=== PATIENT | female | born 1965 | race Caucasian/White ===

== ENCOUNTER 2016-04-30 | Outpatient (CLI) | payer OTHER, MEDICAID | END 2016-04-30 13:15 | disposition home or self-care (01) | DX: R07.9 Chest pain, unspecified (principal) ==

== ENCOUNTER 2016-05-27 14:29 | Outpatient (CLI) | payer OTHER, MEDICAID | END 2016-05-27 14:30 | disposition home or self-care (01) | DX: R06.00 Dyspnea, unspecified (principal) ==

== ENCOUNTER 2017-09-11 08:00 | Outpatient (CLI) | payer OTHER, MEDICAID ==
[2017-09-11 19:02] LABS: BASOPHILS # (AUTO) 0.1 10^3/uL (0.0-0.1); BASOPHILS % (AUTO) 0.9 %; EOSINOPHILS # (AUTO) 0.1 10^3/uL (0.0-0.7); EOSINOPHILS % (AUTO) 1.2 %; HGB - HEMOGLOBIN 13.3 g/dL (12.0-16.0); LYMPHOCYTES # (AUTO) 2.3 10^3/uL (1.5-3.5); LYMPHOCYTES % (AUTO) 37.3 %; MEAN CORPUSCULAR HEMOGLOBIN 29.4 pg (27.0-31.0); MEAN CORPUSCULAR HGB CONC 34.3 g/dL (32.0-36.0); MEAN CORPUSCULAR VOLUME 85.7 fL (81.0-99.0); MEAN PLATELET VOLUME 7.5 fL (7.9-10.8); MONOCYTES # (AUTO) 0.3 10^3/uL (0.0-1.0); MONOCYTES % (AUTO) 4.8 %; NEUTROPHILS # (AUTO) 3.5 10^3/uL (1.5-6.6); NEUTROPHILS % (AUTO) 55.8 %; PLT - PLATELET COUNT 373 10^3/uL (130-450); RED BLOOD COUNT 4.54 10^6/uL (4.20-5.40); RED CELL DISTRIBUTION WIDTH 12.9 % (12.0-15.0); WHITE BLOOD COUNT 6.2 x10^3/uL (4.8-10.8)
[2017-09-11 19:21] LABS: CALCIUM 9.9 mg/dL (8.5-10.3); CREATININE 0.6 mg/dL (0.4-1.0)
[2017-09-11 19:24] LABS: THYROID STIMULATING HORMONE 1.3 uIU/mL (0.34-5.60)
[2017-09-11 21:10] LABS: HB2 TOTAL 14.7 g/dL; HEMOGLOBIN A1C 0.49 g/dL; HEMOGLOBIN A1C % 5.2 % (4.6-6.2)
[2017-09-14 15:11] LABS: ANA SCREEN NEGATIVE (NEGATIVE)
== END 2017-09-11 08:01 | disposition home or self-care (01) ==
LOC: LAB.N 08:00
PROVIDERS: ATTEND Physician Assistant Medical
DX: R20.2 Paresthesia of skin (principal)
CPT/HCPCS: 36415; 80048; 82607; 83036; 84443; 85025; 85651; 86038

== ENCOUNTER 2017-12-08 09:29 | Outpatient (CLI) | payer OTHER, MEDICAID ==
--- NOTE | 2017-12-08 11:01 | CT Report ---
Reason: OTALGIA, LEFT Procedure Date: 12/08/2017 Accession Number: [id number] / [id number] Procedure: CT - Sinuses CPT Code: FULL RESULT: EXAM: CT SINUS EXAM DATE: 12/08/2017 09:48 AM. HISTORY: Left-sided otalgia. COMPARISONS: CT head without contrast 08/06/2014. TECHNIQUE: Routine multi-axial CT imaging performed through the sinuses. Iodinated IV contrast: None. Reconstructions: Coronal. In accordance with CT protocol optimization, one or more of the following dose reduction techniques were utilized for this exam: automated exposure control, adjustment of mA and/or KV based on patient size, or use of iterative reconstructive technique. FINDINGS: RIGHT Frontal: Normal. Ethmoid: Opacified right ethmoid bulla, remaining ethmoids are clear. Maxillary: Normal. Sphenoid: Normal. Drainage Pathways: The frontal recess, ostiomeatal complex and sphenoethmoidal recess are patent and normal. LEFT Frontal: Normal. Ethmoid: Normal. Maxillary: Normal. Sphenoid: Normal. Drainage Pathways: The frontal recess, ostiomeatal complex and sphenoethmoidal recess are patent and normal. Nasal Cavity: Normal. No mass or significant anatomic abnormality evident. Osseous Structures: Minimal mucoperiosteal thickening within the nasal cavity. Orbits: Stable appearance of the defect in the right lamina papyracea, evidence of prior injury. Other: Visualized external and internal auditory canal osseous structures are grossly intact and unremarkable. IMPRESSION: No sinusitis and no gross osseous erosive changes in the region of the left ear. RADIA
== END 2017-12-08 09:30 | disposition home or self-care (01) ==
LOC: DI 09:29
PROVIDERS: ATTEND Physician Assistant Medical
DX: H92.02 Otalgia, left ear (principal)
CPT/HCPCS: 70486

== ENCOUNTER 2017-12-23 08:00 | Outpatient (CLI) | payer OTHER, MEDICAID ==
[2017-12-23 20:38] LABS: BASOPHILS % (AUTO) 0.6 %; EOSINOPHILS # (AUTO) 0.1 10^3/uL (0.0-0.7); EOSINOPHILS % (AUTO) 1.7 %; HGB - HEMOGLOBIN 13.7 g/dL (12.0-16.0); LYMPHOCYTES # (AUTO) 2.2 10^3/uL (1.5-3.5); LYMPHOCYTES % (AUTO) 32.8 %; MEAN CORPUSCULAR HEMOGLOBIN 29.7 pg (27.0-31.0); MEAN CORPUSCULAR HGB CONC 34.3 g/dL (32.0-36.0); MEAN CORPUSCULAR VOLUME 86.5 fL (81.0-99.0); MEAN PLATELET VOLUME 6.9 fL (7.9-10.8); MONOCYTES # (AUTO) 0.3 10^3/uL (0.0-1.0); MONOCYTES % (AUTO) 4.5 %; NEUTROPHILS % (AUTO) 60.4 %; PLT - PLATELET COUNT 352 10^3/uL (130-450); RED BLOOD COUNT 4.61 10^6/uL (4.20-5.40); RED CELL DISTRIBUTION WIDTH 12.8 % (12.0-15.0); WHITE BLOOD COUNT 6.6 x10^3/uL (4.8-10.8)
[2017-12-23 21:13] LABS: ALBUMIN 4.4 g/dL (3.2-5.5); ALBUMIN/GLOBULIN RATIO 1.5 (1.0-2.2); BILIRUBIN,TOTAL 0.5 mg/dL (0.2-1.0); CREATININE 0.6 mg/dL (0.4-1.0); TOTAL PROTEIN 7.3 g/dL (6.7-8.2)
== END 2017-12-23 08:01 | disposition home or self-care (01) ==
LOC: LAB.R 08:00
PROVIDERS: ATTEND Physician Assistant Medical
DX: R51 Headache (principal); M54.2 Cervicalgia; H92.02 Otalgia, left ear
CPT/HCPCS: 36415; 80053; 84443; 85025

== ENCOUNTER 2018-06-09 15:03 | Emergency (ER) | payer OTHER, MEDICAID ==
[2018-06-09] MEDS ORDERED: ONDANSETRON 4 MG/2 ML VIAL IVP STA (15:21)
[2018-06-09] MEDS ORDERED: HYDROmorphone 1 MG/ML CARPUJECT IVP STA (15:21)
--- NOTE | 2018-06-09 15:24 | ED Physician Documentation ---
PD HPI HEADACHE - Stated complaint Stated Complaint: NEGRETE/SENT BY - Chief complaint Chief Complaint: Neuro - History obtained from History obtained from: Patient - History of Present Illness Timing - onset: Today (She had a sudden severe frontal headache that started during a "activity" just prior to arrival. Her daughters in the room and she does not specifically state what the activity was, but makes it pretty clear that it was sexual activity. She does have headaches but this is different and sudden in onset. She notes that for the last several weeks she has had on and off upper left chest pain radiating to the neck that is nonexertional and does not seem to be triggered by anything specific. When the headache started she reached up to grab her head but noticed that briefly her arm did not seem to work on the right, that is now better.) Review of Systems Ten Systems: 10 systems reviewed and negative Constitutional: denies: Fever, Chills Respiratory: denies: Dyspnea, Cough GI: denies: Abdominal Pain, Nausea, Vomiting PD PAST MEDICAL HISTORY - Past Medical History Cardiovascular: None Respiratory: None Endocrine/Autoimmune: None GI: None SHEETING PULLER: None : None HEENT: None Psych: Depression, Anxiety Musculoskeletal: None Derm: None - Past Surgical History Past Surgical History: Yes Ortho: Spine surgery /SHEETING PULLER: Hysterectomy - Present Medications Home Medications: Ambulatory Orders Medication Instructions Recorded Confirmed Gabapentin 600 mg PO DAILY 08/06/14 06/14/15 Sertraline HCl [Zoloft] 100 mg PO DAILY 08/06/14 06/14/15 tiZANidine [Zanaflex] 4 mg ORAL QPM PRN 11/06/14 06/14/15 Gabapentin 900 mg PO QPM 06/13/15 06/14/15 Kalida 300 mg PO QPM 06/13/15 06/14/15 Methylphenidate HCl [Concerta] 54 mg PO DAILY 06/13/15 06/14/15 Multivitamin [Multivitamins] 1 each PO DAILY 06/13/15 06/14/15 Amox/Clav 875/125 [Augmentin] 1 each PO Q12H #20 tablet 06/09/18 Indomethacin [Indocin] 25 mg PO BIDWM PRN #20 capsule 06/09/18 - Allergies Allergies/Adverse Reactions: Allergies Allergy/AdvReac Type Severity Reaction Status Date / Time No Known Drug Allergies Allergy Verified 06/09/18 15:08 - Social History Does the pt smoke?: No Smoking Status: Never smoker Does the pt drink ETOH?: No Does the pt have substance abuse?: No - Immunizations Immunizations are current?: No Immunizations: TDAP >10years/unknown PD ED PE NORMAL - Vitals Vital signs reviewed: Yes - General General: Alert and oriented X 3, Other (She appears uncomfortable and photophobic) - HEENT HEENT: PERRL, EOMI, Pharynx benign - Neck Neck: Supple, no meningeal sign, No bony TTP - Cardiac Cardiac: RRR, No murmur - Respiratory Respiratory: No respiratory distress, Clear bilaterally - Abdomen Abdomen: Normal bowel sounds, Soft, Non tender - Back Back: No CVA TTP, No spinal TTP - Derm Derm: Normal color, Warm and dry - Extremities Extremities: No edema, No calf tenderness / cord - Neuro Neuro: Alert and oriented X 3, survey research manager 2-12 intact, No motor deficit (Symmetric upper and lower extremity strength; No facial droop) Eye Opening: Spontaneous Motor: Obeys Commands Verbal: Oriented GCS Score: 15 - Psych Psych: Normal mood, Normal affect Results - Vitals Vitals: Vital Signs - 24 hr 06/09/18 06/09/18 15:07 15:35 Temperature 36.4 C L Heart Rate 92 75 Respiratory 18 20 Rate Blood Pressure 149/96 H 149/94 H O2 Saturation 100 98 Oxygen O2 Source Room air - EKG (time done) 1515 Rate: Rate (enter#) (83) Rhythm: NSR, LAE [place]: Normal Intervals: Normal ND QRS: Normal Ischemia: Normal ST segments Computer interpretation: Agree with computer - Labs Labs: Laboratory Tests 06/09/18 06/09/18 06/09/18 15:28 15:28 15:28 WBC 6.6 RBC 4.66 Hgb 13.9 Hct 39.3 MCV 84.3 MCH 29.8 MCHC 35.3 RDW 12.6 Plt Count 364 MPV 6.8 L Neut # (Auto) 4.1 Lymph # (Auto) 2.1 Deuel # (Auto) 0.3 Eos # (Auto) 0.1 Baso # (Auto) 0.1 Absolute Nucleated RBC 0.00 Nucleated RBC % 0.0 Sodium 137 Potassium 3.8 Chloride 104 Carbon Dioxide 25 Anion Gap 8.0 BUN 14 Creatinine 0.6 Estimated GFR (MDRD) 105 Glucose 114 H Calcium 10.2 Total Bilirubin 0.4 AST 29 ALT 31 Alkaline Phosphatase 112 Troponin I < 0.04 Total Protein 8.0 Albumin 4.4 Globulin 3.6 Albumin/Globulin Ratio 1.2 Lipase 34 - Rads (name of study) CT/CTA Head Radiology: EMP read contemporaneously (No subarachnoid hemorrhage or significant intracranial vascular abnormality. She does have sinusitis.) PD MEDICAL DECISION MAKING - ED course ED course: This is a 52-year-old woman who presents with thunderclap headache during sex, most likely a coital headache but subarachnoid hemorrhages on the differential and worked up with CT and CT angiogram of the head which were negative. Departure - Departure Disposition: 01 Home, Self Care Clinical Impression: Coital headache Sinusitis Qualifiers: Sinusitis location: maxillary Chronicity: acute Recurrence: non-recurrent Qualified Code(s): J01.00 - Acute maxillary sinusitis, unspecified Condition: Good Record reviewed to determine appropriate education?: Yes Instructions: ED Headache Sinus Prescriptions: Amox/Clav 875/125 [Augmentin] 1 each PO Q12H #20 tablet Indomethacin [Indocin] 25 mg PO BIDWM PRN #20 capsule PRN Reason: Headache Comments: Call your doctor to arrange a follow-up appointment, make the next available appointment. In the interim, return anytime if worse or if new symptoms develop. Your blood pressure was elevated today on check into the emergency department. This does not mean that you have hypertension, it is a common phenomenon to come to the emergency department and have elevated blood pressure. I recommend that you see your primary care physician within the week to have it rechecked when you are feeling better.
[2018-06-09] MEDS ORDERED: IOVERSOL 320 100 ML VIAL IVP ONE ×2 (15:29→16:26)
[2018-06-09 15:38] LABS: BASOPHILS # (AUTO) 0.1 10^3/uL (0.0-0.1); BASOPHILS % (AUTO) 0.8 %; EOSINOPHILS # (AUTO) 0.1 10^3/uL (0.0-0.7); EOSINOPHILS % (AUTO) 1.2 %; HGB - HEMOGLOBIN 13.9 g/dL (12.0-16.0); LYMPHOCYTES # (AUTO) 2.1 10^3/uL (1.5-3.5); LYMPHOCYTES % (AUTO) 32.2 %; MEAN CORPUSCULAR HEMOGLOBIN 29.8 pg (27.0-31.0); MEAN CORPUSCULAR HGB CONC 35.3 g/dL (32.0-36.0); MEAN CORPUSCULAR VOLUME 84.3 fL (81.0-99.0); MEAN PLATELET VOLUME 6.8 fL (7.9-10.8); MONOCYTES # (AUTO) 0.3 10^3/uL (0.0-1.0); MONOCYTES % (AUTO) 4.1 %; NEUTROPHILS # (AUTO) 4.1 10^3/uL (1.5-6.6); NEUTROPHILS % (AUTO) 61.7 %; PLT - PLATELET COUNT 364 10^3/uL (130-450); RED BLOOD COUNT 4.66 10^6/uL (4.20-5.40); RED CELL DISTRIBUTION WIDTH 12.6 % (12.0-15.0); WHITE BLOOD COUNT 6.6 x10^3/uL (4.8-10.8)
[2018-06-09 15:50] LABS: ALBUMIN 4.4 g/dL (3.2-5.5); ALBUMIN/GLOBULIN RATIO 1.2 (1.0-2.2); BILIRUBIN,TOTAL 0.4 mg/dL (0.2-1.0); CALCIUM 10.2 mg/dL (8.5-10.3); CREATININE 0.6 mg/dL (0.4-1.0)
--- NOTE | 2018-06-09 16:01 | XRAY Report ---
Reason: chest pain Procedure Date: 06/09/2018 Accession Number: [id number] / [id number] Procedure: XR - Chest 1 View X-Ray CPT Code: 04189 FULL RESULT: EXAM: CHEST RADIOGRAPHY EXAM DATE: 06/09/2018 03:53 PM. CLINICAL HISTORY: Chest pain. COMPARISON: CHEST 2 VIEW PA/LAT 05/27/2016 2:44 PM. TECHNIQUE: 1 view. FINDINGS: Lungs/Pleura: No focal opacities evident. No pleural effusion. No pneumothorax. The right hemidiaphragm is mildly elevated. This limits evaluation of the right lung base. Mediastinum: Within exam limitations, the cardiomediastinal contour is normal. Other: None. IMPRESSION: Mild elevation of the right hemidiaphragm, otherwise no acute cardiopulmonary abnormality detected. RADIA
--- NOTE | 2018-06-09 16:46 | CT Report ---
Reason: coital severe headache Procedure Date: 06/09/2018 Accession Number: [id number] / [id number] Procedure: CT - HEAD WO CPT Code: FULL RESULT: CT HEAD WITHOUT CONTRAST INDICATION: 52-year-old female. Coital severe headache. TECHNIQUE: Sequential 5 mm axial images were obtained through the brain. In accordance with CT protocol optimization, one or more of the following dose reduction techniques were utilized for this exam: automated exposure control, adjustment of mA and/or KV based on patient size, or use of iterative reconstructive technique. COMPARISON: 08/06/2014 FINDINGS: There is mild prominence of the cerebral cortical sulci and cerebellar folia, unchanged. The third and lateral ventricles are quite small but unchanged when compared to the prior study. The fourth ventricle remains normal in size. No evidence of subarachnoid or other intracranial hemorrhage. No abnormal extra-axial fluid collection. No mass effect or midline shift. Attenuation of cortex and white matter appears normal. The skull and skull base appear intact. Middle ear cavities and imaged mastoid air cells appear clear. There is circumferential polypoid mucosal thickening in both maxillary sinuses. There appears to be an air-fluid level in the posterior recess of the right maxillary sinus. No other air-fluid level. No air-fluid level is seen in the left maxillary sinus. The imaged paranasal sinuses are otherwise essentially clear. IMPRESSION: 1. Negative unenhanced head CT. No evidence of hemorrhage or other acute intracranial pathology. 2. Mucosal thickening is identified in both maxillary sinuses. There appears to be an air-fluid level in the posterior recess of the right maxillary sinus. In the appropriate clinical setting this certainly could represent active sinusitis.
--- NOTE | 2018-06-09 16:59 | CT Report ---
Reason: coital severe headache Procedure Date: 06/09/2018 Accession Number: [id number] / [id number] Procedure: CT - ANGIO HEAD W CPT Code: FULL RESULT: EXAM: CT ANGIOGRAM HEAD AND POSTCONTRAST HEAD CT. INDICATION: 52-year-old female. Coital severe headache. TECHNIQUE: CT angiogram head 80 cc of Optiray 320 contrast were injected at a rapid rate through a large bore antecubital intravenous catheter. The head was scanned helically during arterial phase. Data was reconstructed into 0.5 mm axial images. In addition, MIP reconstructions have been generated in multiple projections to allow better assessment of the intracranial arteries. Postcontrast head CT Sequential 5 mm axial images were obtained through the brain following the CT angiogram. In accordance with CT protocol optimization, one or more of the following dose reduction techniques were utilized for this exam: automated exposure control, adjustment of mA and/or KV based on patient size, or use of iterative reconstructive technique. COMPARISON: None. FINDINGS: CT angiogram head Anterior circulation: The internal carotid arteries are widely patent bilaterally. No ICA aneurysm is identified. The A1 segment of the left anterior cerebral artery is hypoplastic with dominant right A1 segment. An anterior communicating artery is demonstrated. There appears to be good filling of the A2 and distal SHRUTHI branches bilaterally. No aneurysms are identified in either anterior cerebral artery circulation. The middle cerebral arteries are unremarkable. No aneurysm is demonstrated and there is no obvious occlusion or hemodynamically significant stenosis affecting main branches of either MCA. There appear to be a similar number of opacified M3 and M4 branches bilaterally. Posterior circulation: The vertebral arteries and PICA's are patent. No aneurysm is identified in either PICA origin. The basilar artery, superior cerebellar arteries and right TELEVISION NEWS PRODUCER have a normal appearance. The P1 segment of the left posterior cerebral artery is developmentally absent. There is a large left posterior communicating artery that supplies the P2 and distal left TELEVISION NEWS PRODUCER branches. This represents a known anatomical variant ( origin of the left TELEVISION NEWS PRODUCER). A moderate-sized right posterior communicating artery is demonstrated. No aneurysms are identified arising from the basilar artery trunk or apex. Postcontrast head CT No enhancing space-occupying mass lesion is demonstrated. There appears to be normal intravascular contrast enhancement in the dural venous sinuses and deep venous structures. This effectively excludes the possibility of dural venous sinus thrombosis. IMPRESSION: CT angiogram head 1. Normal anatomical variants (please see above). 2. Otherwise normal intracranial CT angiogram. In particular, no aneurysm is identified. Postcontrast head CT No enhancing mass lesion is demonstrated.
[2018-06-09] MEDS ORDERED: KETOROLAC 30 MG/ML VIAL IVP STA (17:05)
[2018-06-09 17:17] VITALS: BP 119/81
== END 2018-06-09 17:25 | disposition home or self-care (01) ==
LOC: ED 15:03
DX: R51 Headache (principal); J01.00 Acute maxillary sinusitis, unspecified; R03.0 Elevated blood-pressure reading, without diagnosis of hypertension
CPT/HCPCS: 36415; 70450; 70496; 71045; 80053; 83690; 84484; 85025; 93005; 96374; 96375; 99283; 99284; J1170; Q9967

== ENCOUNTER 2019-02-09 15:31 | Emergency (ER) | payer OTHER, MEDICAID ==
[2019-02-09] MEDS ORDERED: KETOROLAC 30 MG/ML VIAL IVP STA (16:08)
[2019-02-09] MEDS ORDERED: SODIUM CHLORIDE 0.9% 1,000 ML IV ONE (16:08)
[2019-02-09] MEDS ORDERED: ACETAMINOPHEN 325 MG TABLET PO STA (16:08)
--- NOTE | 2019-02-09 16:08 | ED Physician Documentation ---
History of Present Illness - Stated complaint Stated Complaint: HEADACHE - Chief complaint Chief Complaint: Neuro - Additonal information Additional information: This is a 53-year-old female with a history of anxiety, depression, and headach es, presents with a persistent headache over around 6 weeks. Patient states that this began gradually, and has waxed and waned somewhat, but is worsened over the last week. She denies any trauma to her head, vision changes, weakness or numbness. She does have some soreness in her left side of her neck associated with a headache. She does get headaches frequently, but this one has lasted longer than her typical headache. She has tried Tylenol and ibuprofen, but these have been minimally effective Review of Systems Constitutional: denies: Fever Eyes: denies: Loss of vision Neurologic: reports: Headache. denies: LOC PD PAST MEDICAL HISTORY - Past Medical History Cardiovascular: None Respiratory: None Neuro: Headaches Endocrine/Autoimmune: None GI: None COILER: None : None HEENT: None Psych: Depression, Anxiety Musculoskeletal: None Derm: None - Past Surgical History Past Surgical History: Yes Ortho: Spine surgery /COILER: Hysterectomy - Present Medications Home Medications: Ambulatory Orders Medication Instructions Recorded Confirmed Sertraline HCl [Zoloft] 100 mg PO DAILY 08/06/14 06/14/15 tiZANidine [Zanaflex] 4 mg ORAL QPM PRN 11/06/14 06/14/15 Multivitamin [Multivitamins] 1 each PO DAILY 06/13/15 06/14/15 Metoclopramide [Reglan] 10 mg PO Q6H PRN #10 tablet 02/09/19 - Allergies Allergies/Adverse Reactions: Allergies Allergy/AdvReac Type Severity Reaction Status Date / Time No Known Drug Allergies Allergy Verified 02/09/19 15:38 - Social History Does the pt smoke?: No Smoking Status: Never smoker Does the pt drink ETOH?: No Does the pt have substance abuse?: No - Immunizations Immunizations are current?: No Immunizations: TDAP >10years/unknown PD ED PE NORMAL - Vitals Vital signs reviewed: Yes - General General: Alert and oriented X 3 - HEENT HEENT: Atraumatic, PERRL, EOMI - Neck Neck: Supple, no meningeal sign - Cardiac Cardiac: RRR - Respiratory Respiratory: No respiratory distress, Clear bilaterally - Derm Derm: Warm and dry - Extremities Extremities: No deformity - Neuro Neuro: Alert and oriented X 3, housekeeping assistant 2-12 intact, No motor deficit, No sensory deficit, Normal speech - Psych Psych: Normal mood, Normal affect Results - Vitals Vitals: Oxygen O2 Source Room air PD MEDICAL DECISION MAKING - ED course Complexity details: considered differential (tension headache, migraine, ICH/SAH) ED course: Pt presents with a persistent headache with similar characteristics to her past headaches and without red flag symptoms for infection or bleed - it was gradual in onset, she has a normal neurologic exam, no fever, no trauma. IV inserted and migraine cocktail given with excellent effect, her headache was nearly completely resolved on repeat exam. I discussed follow up and return precuations and patient was discharged home. Departure - Departure Disposition: 01 Home, Self Care Clinical Impression: Headache Qualifiers: Headache type: unspecified Headache chronicity pattern: acute headache Intractability: not intractable Qualified Code(s): R51 - Headache Condition: Good Instructions: ED Cephalgia Unspecified Prescriptions: Metoclopramide [Reglan] 10 mg PO Q6H PRN #10 tablet PRN Reason: Nausea / Vomiting Comments: You were seen today for a headache which has improved with medications here. You may take Tylenol and ibuprofen for headache, and the Reglan for nausea and vomiting, the Reglan may also help with your headache. If you are developing vision changes, weakness or numbness, persistent vomiting, or any other co ncerning symptoms please return to the emergency department. Otherwise please follow-up with your primary care provider and a neurologist as soon as possible. Discharge Date/Time: 02/09/19 18:22
[2019-02-09] MEDS ORDERED: diphenhydrAMINE INJ 50 MG/ML VIAL IVP STA (16:09)
[2019-02-09] MEDS ORDERED: METOCLOPRAMIDE 10 MG/2 ML VIAL IVP STA (16:09)
[2019-02-09 18:20] VITALS: BP 133/84
== END 2019-02-09 18:22 | disposition home or self-care (01) ==
LOC: ED 15:31
DX: R51 Headache (principal)
CPT/HCPCS: 96361; 96374; 96375; 99283; 99284; A9270; J1200; J2765

== ENCOUNTER 2020-01-06 08:15 | Outpatient (CLI) | payer OTHER, MEDICAID ==
--- NOTE | 2020-01-09 13:39 | Mammography Report ---
BILATERAL DIGITAL SCREENING MAMMOGRAM 3D/2D: 01/06/2020 CLINICAL: Routine screening. Comparison is made to exam dated: 05/21/2015 mammogram - [facility]. There are scat tered fibroglandular elements in both breasts. No significant masses, calcifications, or other findings are seen in either breast. There has been no significant interval change. IMPRESSION: NEGATIVE There is no mammographic evidence of malignancy. A 1 year screening mammogram is recommended. This exam was interpreted at Station ID: [id number]. NOTE: For mammograms, a report in lay terms will be sent to the patient. Approximately 15% of breast malignancies will not be visualized mammographically. In the management of a palpable breast mass, a negative mammogram must not discourage biopsy of a clinically suspicious lesion. Electronically Signed By: Morro hastings/keenan:01/06/2020 09:52:03 ACR BI-RADS Category 1: Negative 3341F PARENCHYMAL PATTERN: (A) - The breast(s) demonstrate(s) scattered fibroglandular densities. BI-RADS CATEGORY: (1) - 1 RECOMMENDATION: (ANNUAL) - Recommend routine annual screening mammography. [id number] 1 year screening LATERALITY: (B)
== END 2020-01-06 08:16 | disposition home or self-care (01) ==
LOC: DI.N 08:15
DX: Z12.31 Encounter for screening mammogram for malignant neoplasm of breast (principal)
CPT/HCPCS: 77063; 77067

== ENCOUNTER 2020-01-06 09:20 | Outpatient (CLI) | payer OTHER, MEDICAID ==
[2020-01-06 12:03] LABS: BASOPHILS # (AUTO) 0.1 10^3/uL (0.0-0.1); BASOPHILS % (AUTO) 1.1 %; EOSINOPHILS # (AUTO) 0.1 10^3/uL (0.0-0.7); HGB - HEMOGLOBIN 14.1 g/dL (12.0-16.0); LYMPHOCYTES # (AUTO) 2.2 10^3/uL (1.5-3.5); LYMPHOCYTES % (AUTO) 36.3 %; MEAN CORPUSCULAR HEMOGLOBIN 29.4 pg (27.0-31.0); MEAN CORPUSCULAR HGB CONC 33.1 g/dL (32.0-36.0); MEAN CORPUSCULAR VOLUME 88.9 fL (81.0-99.0); MEAN PLATELET VOLUME 9.1 fL (7.9-10.8); MONOCYTES # (AUTO) 0.4 10^3/uL (0.0-1.0); MONOCYTES % (AUTO) 6.2 %; NEUTROPHILS # (AUTO) 3.3 10^3/uL (1.5-6.6); NEUTROPHILS % (AUTO) 54.1 %; PLT - PLATELET COUNT 340 10^3/uL (130-450); RED BLOOD COUNT 4.79 10^6/uL (4.20-5.40); RED CELL DISTRIBUTION WIDTH 12.2 % (12.0-15.0); WHITE BLOOD COUNT 6.1 x10^3/uL (4.8-10.8)
[2020-01-06 12:13] LABS: ALBUMIN 4.4 g/dL (3.2-5.5); ALBUMIN/GLOBULIN RATIO 1.4 (1.0-2.2); BILIRUBIN,TOTAL 0.6 mg/dL (0.2-1.0); CALCIUM 10.3 mg/dL (8.5-10.3); CREATININE 0.8 mg/dL (0.4-1.0); TOTAL PROTEIN 7.5 g/dL (6.7-8.2)
== END 2020-01-06 23:59 | disposition home or self-care (01) ==
LOC: LAB.WCP 09:20
PROVIDERS: ATTEND Nurse Practitioner Family
DX: E78.5 Hyperlipidemia, unspecified (principal); K21.9 Gastro-esophageal reflux disease without esophagitis
CPT/HCPCS: 36415; 80053; 84443; 85025

== ENCOUNTER 2021-06-24 11:34 | Outpatient (CLI) | payer OTHER, MEDICAID ==
--- NOTE | 2021-06-24 12:27 | XRAY Report ---
PROCEDURE: Chest 2 View X-Ray INDICATIONS: COUGH TECHNIQUE: 2 view(s) of the chest. COMPARISON: None. FINDINGS: Surgical changes and devices: None. Lungs and pleura: No pleural effusions or pneumothorax. Lungs are clear. Mediastinum: Mediastinal contours are normal. Heart size is normal. Bones and chest wall: No suspicious bony abnormalities. Soft tissues appear unremarkable. IMPRESSION: No acute pulmonary process. Reviewed by: Cecelia Jordan MD on 06/24/2021 12:25 PM PDT Approved by: Cecelia Jordan MD on 06/24/2021 12:25 PM PDT Station ID: [id number]
== END 2021-06-24 11:35 | disposition home or self-care (01) ==
LOC: DI.N 11:34
PROVIDERS: ATTEND Family Medicine
DX: R05.8 Other specified cough (principal); R04.2 Hemoptysis

== ENCOUNTER 2021-07-26 09:48 | Outpatient (CLI) | payer OTHER, MEDICAID ==
--- NOTE | 2021-07-26 10:22 | XRAY Report ---
PROCEDURE: Thoracic Spine 2 View INDICATIONS: THORACIC BACK PAIN TECHNIQUE: 3 views of the thoracic spine were acquired. COMPARISON: Reference is made to the chest radiograph dated June 24, 2021. FINDINGS: THORACIC SPINE: No acute, displaced fracture or retropulsion. The vertebral body heights and interver tebral disc spaces are maintained. SOFT TISSUES: No prevertebral soft tissue thickening. IMPRESSION: 1. No acute osseous abnormality of the thoracic spine. Reviewed by: Kolton Claros MD on 07/26/2021 10:21 AM PDT Approved by: Kolton Claros MD on 07/26/2021 10:21 AM PDT Station ID: [id number]
--- NOTE | 2021-07-26 10:24 | XRAY Report ---
PROCEDURE: Lumbar Spine 2 View INDICATIONS: LOW BACK PAIN TECHNIQUE: 3 views of the lumbar spine were acquired. COMPARISON: None. FINDINGS: L-SPINE: Rudimentary ribs at T12. 5 nonrib-bearing vertebrae. No acute displaced fracture or malalign ment. The vertebral body heights are maintained. Facet arthrosis, most prominent at L4-S1. Mild to m oderate disc and loss at L4-5. The sacroiliac joints appear patent. SOFT TISSUES: No focal abnormality. IMPRESSION: 1.Lumbar spine degeneration as detailed above. Reviewed by: Kolton Claros MD on 07/26/2021 10:23 AM PDT Approved by: Kolton Claros MD on 07/26/2021 10:23 AM PDT Station ID: [id number]
== END 2021-07-26 09:49 | disposition home or self-care (01) ==
LOC: DI.N 09:48
PROVIDERS: ATTEND Nurse Practitioner
DX: M47.816 Spondylosis without myelopathy or radiculopathy, lumbar region (principal); M51.36 Other intervertebral disc degeneration, lumbar region; M47.817 Spondylosis without myelopathy or radiculopathy, lumbosacral region

== ENCOUNTER 2023-09-09 10:18 | Outpatient (CLI) | payer OTHER, MEDICAID ==
[2023-09-09 12:10] LABS: BASOPHILS # (AUTO) 0.1 10^3/uL (0.0-0.1); BASOPHILS % (AUTO) 1.2 %; EOSINOPHILS # (AUTO) 0.1 10^3/uL (0.0-0.7); EOSINOPHILS % (AUTO) 1.5 %; HCT - HEMATOCRIT 41.4 % (37.0-47.0); LYMPHOCYTES # (AUTO) 2.8 10^3/uL (1.5-3.5); LYMPHOCYTES % (AUTO) 41.3 %; MEAN CORPUSCULAR HEMOGLOBIN 28.9 pg (27.0-31.0); MEAN CORPUSCULAR HGB CONC 33.8 g/dL (32.0-36.0); MEAN CORPUSCULAR VOLUME 85.5 fL (81.0-99.0); MEAN PLATELET VOLUME 8.9 fL (7.9-10.8); MONOCYTES # (AUTO) 0.3 10^3/uL (0.0-1.0); MONOCYTES % (AUTO) 4.8 %; NEUTROPHILS # (AUTO) 3.5 10^3/uL (1.5-6.6); NEUTROPHILS % (AUTO) 50.9 %; PLT - PLATELET COUNT 349 10^3/uL (130-450); RED BLOOD COUNT 4.84 10^6/uL (4.20-5.40); RED CELL DISTRIBUTION WIDTH 11.9 % (12.0-15.0); WHITE BLOOD COUNT 6.8 x10^3/uL (4.8-10.8)
[2023-09-09 13:00] LABS: ALBUMIN 4.7 g/dL (3.2-5.5); ALBUMIN/GLOBULIN RATIO 1.7 (1.0-2.2); BILIRUBIN,TOTAL 0.4 mg/dL (0.2-1.0); CALCIUM 11.5 mg/dL (8.5-10.3); CREATININE 0.8 mg/dL (0.6-1.3); POTASSIUM 4.1 mmol/L (3.5-4.5); TOTAL PROTEIN 7.4 g/dL (6.4-8.9)
[2023-09-09 13:03] LABS: THYROID STIMULATING HORMONE 3.83 uIU/mL (0.34-5.60)
== END 2023-09-09 10:19 | disposition home or self-care (01) ==
LOC: LAB.N 10:18
PROVIDERS: ATTEND Nurse Practitioner Family
DX: R06.01 Orthopnea (principal); R06.09 Other forms of dyspnea; R61 Generalized hyperhidrosis; R07.89 Other chest pain; R03.0 Elevated blood-pressure reading, without diagnosis of hypertension
CPT/HCPCS: 36415; 80053; 83880; 84443; 85025

== ENCOUNTER 2023-12-31 07:43 | Outpatient (CLI) | payer OTHER, MEDICAID | END 2023-12-31 07:44 | disposition home or self-care (01) | LOC: RT 07:43 | PROVIDERS: ATTEND Nurse Practitioner | DX: R06.09 Other forms of dyspnea (principal) | CPT/HCPCS: 94010; 94729 ==

== ENCOUNTER 2023-12-31 19:03 | Outpatient (CLI) | payer OTHER, MEDICAID ==
--- NOTE | 2024-01-01 20:07 | Ultrasound Report ---
PROCEDURE: Soft Tissue Head or Neck INDICATIONS: FATIGUE TECHNIQUE: Real-time scanning was performed of the thyroid gland, with image documentation. COMPARISON: None FINDINGS: Right: Thyroid lobe measures 4.7 x 1.0 x 1.5 cm. Left: Thyroid lobe measures 5.0 x 1.1 x 1.4 cm Isthmus: 0.3 cm thick. Echotexture: Homogeneous. No nodules. All 4 parathyroid identified. On the left, superior parathyroid measures 0.9 x 0.5 x 0.5 cm. The infe rior parathyroid measures less than 5 mm. On the right, the superior parathyroid measures 1.9 x 0.4 x 0.7 cm. Inferior parathyroid measures 1.1 x 1.1 x 0.6 cm. All parathyroid glands are appropriately h eight hypoechoic. The inferior right parathyroid does show increased vascularity. IMPRESSION: No evidence of thyroid nodules. Hypoechoic parathyroids identified. Right inferior parathyroid does show increased Doppler vascularit y. Consider follow-up nuclear medicine scan. Reviewed by: Jesse Gramajo MD on 01/01/2024 7:06 PM KRISTINA Approved by: Jesse Gramajo MD on 01/01/2024 7:06 PM KRISTINA Station ID: [id number]
== END 2023-12-31 19:04 | disposition home or self-care (01) ==
LOC: DI 19:03
PROVIDERS: ATTEND Nurse Practitioner
DX: E83.52 Hypercalcemia (principal); R53.83 Other fatigue